=== PATIENT | male | born 1980 | race Caucasian/White ===

== ENCOUNTER 2018-10-12 12:18 | Emergency (ER) | payer SELFPAY | END 2018-10-12 12:28 | disposition home or self-care (01) | LOC: FTE 12:18 | DX: H65.91 Unspecified nonsuppurative otitis media, right ear (principal); F17.210 Nicotine dependence, cigarettes, uncomplicated | CPT/HCPCS: 99283 ==

== ENCOUNTER 2018-10-13 19:20 | Emergency (ER) | payer SELFPAY ==
[2018-10-13] MEDS: SOD CHLORIDE 0.9% 500 ML IV (20:35)
[2018-10-13] MEDS: KETOROLAC 15 MG INJ IV (20:37)
[2018-10-13] MEDS: morphine 2 MG INJ IV (20:37)
[2018-10-13] MEDS: DEXAMETHASONE 10 MG/ML 1 ML INJ IV (20:37)
[2018-10-13] MEDS: CEFAZOLIN 2 GM/50 ML (PMX) 50 ML IVPB (21:07)
== END 2018-10-13 22:17 | disposition home or self-care (01) ==
LOC: FTE 19:20
DX: H60.91 Unspecified otitis externa, right ear (principal)
CPT/HCPCS: 96374; 96375; 99284-25